=== PATIENT | male | born 1990 | race Caucasian/White ===

== ENCOUNTER 2018-01-19 00:09 | Emergency (ER) | payer OTHER ==
--- NOTE | 2018-01-19 00:26 | EDPHY ---
H & P Stated Complaint: cut finger with knife Time Seen by Provider: 01/19/18 00:26 HPI/ROS: HPI CHIEF COMPLAINT: Left finger laceration index finger HISTORY OF PRESENT ILLNESS: 27-year-old male presents emergency room with a left index finger laceration. Patient states he was cutting a vegetable and shaved the distal aspect of the left index finger. Was unable to get the bleeding to stop at home. Tetanus shot is up-to-date. Denies any other areas of injury. Patient came to the emergency room due to the bleeding continued. Past Medical History: Denies medical history Past Surgical History: Denies surgical history Social History: Denies daily use of drugs alcohol tobacco. 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 Family History: Noncontributory. ROS REVIEW OF SYSTEMS: A comprehensive 10 point review of systems is otherwise negative aside from elements mentioned in the history of present illness. Exam Constitutional triage nursing summary reviewed, vital signs reviewed, awake/ alert. Eyes normal conjunctivae and sclera, EOMI, PERRLA. HENT normal inspection, atraumatic, moist mucus membranes, no epistaxis, neck supple/ no meningismus, no raccoon eyes. Respiratory clear to auscultation bilaterally, normal breath sounds, no respiratory distress, no wheezing. Cardiovascular rate normal, regular rhythm, no murmur, no edema, distal pulses normal. Gastrointestinal soft, non-tender, no rebound, no guarding, normal bowel sounds, no distension, no pulsatile mass. Genitourinary no CVA tenderness. Musculoskeletal no midline vertebral tenderness, full range of motion, no calf swelling, no tenderness of extremities, no meningismus, good pulses, neurovascularly intact. Skin left index finger: Distal aspect shaved off the distal aspect of his left index finger. Nail bed intact. No bony involvement. Capillary bleed present. No tendon injury. Full range of motion otherwise neurovascular intact. Neurologic awake, alert and oriented x 3, AAOx3, moves all 4 extremities equally, motor intact, sensory intact, CN II-XII intact, normal cerebellar, normal vision, normal speech. Psychiatric normal mood/affect. Heme/Lymph/Immune no lymphadenopathy. Differential Diagnosis: Includes but is not limited to in a particular order left distal finger laceration, avulsion laceration, capillary bleed, soft tissue injury Medical Decision Making: Plan for this patient x-ray left index finger digit for bony abnormality. Additionally will clean his wound. Apply surgery phone. Will place in finger splint. Recommend Hand surgery follow-up as needed. Watch for infection. Re-evaluation: Patient's x-ray the finger shows no bony involvement. Distal tip laceration. No nail bed involvement. Bleeding controlled with surgery phone. Dressing in place. Finger splint in place. Understands follow-up with Hand surgery. Additionally return emergency room if there is any questions or concerns about his injury. Source: Patient - Personal History Current Tetanus Diphtheria and Acellular Pertussis (TDAP): Yes Tetanus Vaccine Date: 2017 - Medical/Surgical History Hx Asthma: No Hx Chronic Respiratory Disease: No Hx Diabetes: No Hx Cardiac Disease: No Hx Renal Disease: No Hx Cirrhosis: No Hx Alcoholism: No Hx HIV/AIDS: No Hx Splenectomy or Spleen Trauma: No Other PMH: knee - Social History Smoking Status: Heavy smoker Constitutional: Initial Vital Signs Temperature (C) 36.6 C 01/19/18 00:12 Heart Rate 82 01/19/18 00:12 Respiratory Rate 14 01/19/18 00:12 Blood Pressure 132/89 H 01/19/18 00:12 O2 Sat (%) 96 01/19/18 00:12 O2 Delivery Mode Room Air Allergies/Adverse Reactions: No Known Allergies Allergy (Unverified 01/19/18 00:11) Home Medications: Medication Instructions Recorded NK [No Known Home Meds] 01/19/18 Departure - Departure Disposition: Home, Routine, Self-Care Clinical Impression: Laceration Finger laceration Qualifiers: Encounter type: initial encounter Finger: index finger Damage to nail status: without damage Foreign body presence: without foreign body Laterality: left Qualified Code(s): S61.211A - Laceration without foreign body of left index finger without damage to nail, initial encounter Condition: Good Instructions: Finger Laceration (ED) Additional Instructions: 1. Watch for infection. 2. Finger splint for immobilization and protection 3. Return emergency room if there is any worsening symptoms questions or concerns. Referrals: NONE *PRIMARY CARE P,. [Primary Care Provider] - As per Instructions Sloan Martinez MD [Medical Doctor] - As per Instructions
[2018-01-19 01:21] VITALS: BP 126/80
== END 2018-01-19 01:23 | disposition home or self-care (01) ==
DX: S61.211A Laceration without foreign body of left index finger without damage to nail, initial encounter (principal); F17.200 Nicotine dependence, unspecified, uncomplicated; W26.0XXA Contact with knife, initial encounter; Y93.G3 Activity, cooking and baking
CPT/HCPCS: L3925